=== PATIENT | female | born 1995 ===

== ENCOUNTER → 2017-10-01 | Outpatient (CLI) | payer OTHER | END | disposition home or self-care (01) | LOC: SONOGRAMA 13:55 | DX: N60.11 Diffuse cystic mastopathy of right breast (principal); N60.12 Diffuse cystic mastopathy of left breast; N60.21 Fibroadenosis of right breast; Z12.31 Encounter for screening mammogram for malignant neoplasm of breast ==

== ENCOUNTER 2017-12-23 10:27 | Outpatient (CLI) | payer OTHER | END 2017-12-23 10:39 | disposition home or self-care (01) | LOC: RAD 10:27 | DX: I10 Essential (primary) hypertension (principal) ==

== ENCOUNTER 2017-12-27 06:23 | Day surgery (SDC) | payer OTHER | END 2017-12-27 19:00 | disposition home or self-care (01) | LOC: CIR.AMB 06:23 | DX: D24.2 Benign neoplasm of left breast (principal) ==